=== PATIENT | male | born 1950 | race Caucasian/White ===

== ENCOUNTER 2022-11-17 10:17 | Day surgery (SDC) | payer MEDICARE, OTHER ==
[~2022-11-17 10:17] MED LIST: Lactated Ringers 1,000 ML IV SCH
[2022-11-17] MEDS ORDERED: Propofol 200 MG/20 ML SDV ONE ×2 (11:36→12:00)
[2022-11-17] MEDS ORDERED: fentaNYL 100 MCG/2 ML SDV ONE (11:36)
== END 2022-11-17 13:25 | disposition home or self-care (01) ==
LOC: VM.SDS 10:17
PROVIDERS: ATTEND Surgery
DX: Z12.11 Encounter for screening for malignant neoplasm of colon (principal); E78.00 Pure hypercholesterolemia, unspecified; I25.2 Old myocardial infarction; Z79.899 Other long term (current) drug therapy; Z79.82 Long term (current) use of aspirin
CPT/HCPCS: 00812; J2704; J3010; J7120